=== PATIENT | female | born 1980 | race Caucasian/White ===

== ENCOUNTER 2017-12-19 17:39 | Emergency (ER) | payer OTHER ==
[~2017-12-19] VITALS: Ht 162.6 cm; Wt 68.5 kg
== END 2017-12-19 21:59 | disposition home or self-care (01) ==
LOC: ER 17:39
DX: R07.89 Other chest pain (principal); B34.9 Viral infection, unspecified

== ENCOUNTER 2020-08-16 10:17 | Outpatient (CLI) | payer OTHER | END 2020-08-16 10:20 | disposition home or self-care (01) | LOC: LAB 10:17 | DX: Z20.828 Contact with and (suspected) exposure to other viral communicable diseases (principal) ==